=== PATIENT | female | born 1955 | race African-American/Black ===

== ENCOUNTER 2018-12-14 09:02 | Emergency (ER) | payer MEDICAID, OTHER ==
[~2018-12-14] VITALS: Ht 144.8 cm; Wt 84.0 kg
[~2018-12-14 09:02] MED LIST: AMLO2.5T45 PO
[2018-12-14] MEDS ORDERED: AMLODIPINE 5MG TABLET PO ONE (14:15)
[2018-12-14] MEDS ORDERED: MORPHINE SULFATE 4 MG/ML CPJ (NOT FOR IM USE) IV ONE (14:15)
[2018-12-14] MEDS ORDERED: ONDANSETRON HCL 4MG/2ML INJ IV ONE (14:15)
[2018-12-14 15:04] LABS: HEMATOCRIT. 43.2 % (36.0-48.0); HEMOGLOBIN. 14.3 g/dL (12.0-16.0); MEAN CORPUSCULAR HEMOGLOBIN 27.8 pg (28.0-32.0); MEAN CORPUSCULAR VOLUME 83.8 fL (81.0-99.0); PLATELET 177 x1000/uL (130-400); RED BLOOD CELL COUNT 5.15 mill/uL (4.2-5.4); RED CELL DISTRIBUTION WIDTH 15.2 % (11.6-14.6)
[2018-12-14 15:10] LABS: CHLORIDE 102 mEq/L (98-107); PARTIAL THROMBOPLASTIN TIME 34.1 sec (23.4-31.0); PROTHROMBIN TIME 10.5 sec (9.1-11.1)
[2018-12-14 15:19] LABS: CREATINE KINASE 67 IU/L (26-192)
[2018-12-14 15:21] LABS: CREATINE KINASE MB FRACTION < 1.0 ng/mL (0.5-3.6)
[2018-12-14 15:22] VITALS: BP 126/84
[2018-12-14 16:10] LABS: PLATELET ESTIMATE NORMAL
== END 2018-12-14 18:23 | disposition home or self-care (01) ==
LOC: ER 09:12
DX: J44.1 Chronic obstructive pulmonary disease with (acute) exacerbation (principal); R51 Headache; I11.9 Hypertensive heart disease without heart failure; F17.200 Nicotine dependence, unspecified, uncomplicated; Z88.6 Allergy status to analgesic agent
CPT/HCPCS: 36415; 71045; 80053; 82550; 82553; 83880; 84484; 85025; 85610; 85730; 87804; 93005; 96374; 96375; 99284; J2270; J2405